=== PATIENT | female | born 1945 | race Caucasian/White ===

== ENCOUNTER → 2021-07-14 15:00 | Outpatient (BNVA) | payer MEDICARE, SELFPAY | PROVIDERS: PCP Family Medicine; Visit Provider Psychiatry & Neurology Neurology | DX: G20 Parkinson's disease (principal); F03.90 Unspecified dementia, unspecified severity, without behavioral disturbance, psychotic disturbance, mood disturbance, and anxiety; G47.33 Obstructive sleep apnea (adult) (pediatric); Z79.899 Other long term (current) drug therapy; Z99.89 Dependence on other enabling machines and devices | CPT/HCPCS: 99212 ==

== ENCOUNTER → 2021-07-23 14:28 | Outpatient (BNVA) | payer MEDICARE, SELFPAY | PROVIDERS: PCP Family Medicine; Referring Provider Family Medicine; Visit Provider Nurse Practitioner | DX: Z12.11 Encounter for screening for malignant neoplasm of colon (principal); K58.2 Mixed irritable bowel syndrome | CPT/HCPCS: 99202 ==

== ENCOUNTER 2021-09-08 09:04 | Day surgery (SDC) | payer MEDICARE, SELFPAY ==
--- NOTE | 2021-09-07 11:01 | P.CONAN_ITS ---
Documented by User: Nellie Johnson NP 09/07/21 11:02 HPI - Anesthesia Eval Consult details Narrative: 76yo F Colonoscopy PMFSH Active Problems Active Problems: All Active Problems (Updated 07/23/21 @ 16:22 by MIKE Bill) Colon cancer screening (Acute) Irritable bowel syndrome with both constipation and diarrhea (Acute) Diarrhea (Acute) Parkinson's disease (Acute) Dementia (Acute) Vitamin B 12 deficiency (Acute) ALEXANDRA on CPAP (Acute) Arthritis (Acute) Prediabetes (Acute) HTN (hypertension) (Acute) Sarcoidosis (Acute) Past Medical History Medical History Anemia Arthritis Dementia HTN (hypertension) ALEXANDRA on CPAP Parkinson's disease Prediabetes Sarcoidosis Vitamin D deficiency Family History Family History Mother Cancer Hx of heart surgery Diabetes Stroke Father Ankylosing spondylitis of multiple sites in spine Surgical History Surgical History History of esophagogastroduodenoscopy (EGD) Hx of colonoscopy Knee joint replacement status Social History Social History Alcohol intake: never Patient Tobacco Use Status: Never used Tobacco Use of substances other than those prescribed or required for medical reasons: No Are you DNR?: No Advance Directives: No Advance Directives Information Provided: Yes Meds Allergies Allergy/AdvReac Type Severity Reaction Status Date / Time No Known Allergies Allergy Verified 09/02/21 15:07 Home Medications Medication Instructions Recorded Confirmed Last Taken Type escitalopram oxalate 10 mg tablet 10 mg PO DAILY 07/08/21 09/02/21 09/08/21 History memantine 10 mg tablet 10 mg PO BID 07/08/21 09/02/21 09/08/21 History carbidopa 25 mg-levodopa 100 mg 1 tab PO .5 times day 07/14/21 09/02/21 09/08/21 History tablet lisinopril 5 mg tablet 5 mg PO DAILY 07/14/21 09/02/21 Unknown History triamcinolone acetonide 0.1 % 1 appl topical BID 07/14/21 09/02/21 Unknown History topical cream Ca carbonate-vit D3-mag oxide-FA-K cap PO 07/23/21 Unknown History 500 mg-100 unit-45 mg-800 mcg cap Glucofunction PO TID 07/23/21 Unknown History Hericium erinaceus PO BID 07/23/21 Unknown History acetylcysteine 600 mg tablet (NAC) mg PO BID 07/23/21 09/08/21 History ascorbic acid (vitamin C) 1,000 mg 1 g PO DAILY 07/23/21 09/02/21 Unknown History tablet coQ10 (ubiquinol) 200 mg capsule 200 mg PO DAILY 07/23/21 09/02/21 Unknown History cyanocobalamin-methylcobalamin 600 tab sublingual 07/23/21 Unknown History mcg-600 mcg sublingual tablet lactobacillus combination no.9 4 4,000 mmu cells PO DAILY 07/23/21 09/02/21 Unknown History billion cell capsule (Adult 50 Plus Probiotic) levomefolate calcium 15 mg tablet 15 mg PO DAILY 07/23/21 09/02/21 Unknown History (L-Methylfolate) omega 3-tpe-gus-fish oil 300 1 cap PO DAILY 07/23/21 09/02/21 Unknown History mg-1,000 mg capsule (Fish Oil) vitamin B complex 1 tab PO DAILY 07/23/21 09/02/21 Unknown History Exam Exam Date and Time: September 07, 2021 1101 Assessment and Plan Assessment Anesthesia Assessment: Chart Reviewed Documented by User: Juancho Oconnell MD 09/08/21 11:14 HPI - Anesthesia Eval Consult details Narrative: 76yo F Colonoscopy ALEXANDRA on CPAP Parkinson's on Dopa PMFSH Past Medical History Medical History Anemia Arthritis Dementia HTN (hypertension) ALEXANDRA on CPAP Parkinson's disease Prediabetes Sarcoidosis Vitamin D deficiency Family History Family History Mother Cancer Hx of heart surgery Diabetes Stroke Father Ankylosing spondylitis of multiple sites in spine Family history of problems with anesthesia: No Surgical History Surgical History History of esophagogastroduodenoscopy (EGD) Hx of colonoscopy Knee joint replacement status History of Problems with Anesthesia: No Social History Social History Alcohol intake: never Patient Tobacco Use Status: Never used Tobacco Use of substances other than those prescribed or required for medical reasons: No Are you DNR?: No Advance Directives: No Advance Directives Information Provided: Yes Meds Allergies Allergy/AdvReac Type Severity Reaction Status Date / Time No Known Allergies Allergy Verified 09/02/21 15:07 Home Medications Medication Instructions Recorded Confirmed Last Taken Type escitalopram oxalate 10 mg tablet 10 mg PO DAILY 07/08/21 09/02/21 09/08/21 History memantine 10 mg tablet 10 mg PO BID 07/08/21 09/02/21 09/08/21 History carbidopa 25 mg-levodopa 100 mg 1 tab PO .5 times day 07/14/21 09/02/21 09/08/21 History tablet lisinopril 5 mg tablet 5 mg PO DAILY 07/14/21 09/02/21 Unknown History triamcinolone acetonide 0.1 % 1 appl topical BID 07/14/21 09/02/21 Unknown History topical cream Ca carbonate-vit D3-mag oxide-FA-K cap PO 07/23/21 Unknown History 500 mg-100 unit-45 mg-800 mcg cap Glucofunction PO TID 07/23/21 Unknown History Hericium erinaceus PO BID 07/23/21 Unknown History acetylcysteine 600 mg tablet (NAC) mg PO BID 07/23/21 09/08/21 History ascorbic acid (vitamin C) 1,000 mg 1 g PO DAILY 07/23/21 09/02/21 Unknown Histor y tablet coQ10 (ubiquinol) 200 mg capsule 200 mg PO DAILY 07/23/21 09/02/21 Unknown History cyanocobalamin-methylcobalamin 600 tab sublingual 07/23/21 Unknown History mcg-600 mcg sublingual tablet lactobacillus combination no.9 4 4,000 mmu cells PO DAILY 07/23/21 09/02/21 Unknown History billion cell capsule (Adult 50 Plus Probiotic) levomefolate calcium 15 mg tablet 15 mg PO DAILY 07/23/21 09/02/21 Unknown History (L-Methylfolate) omega 8-pyv-mpi-fish oil 300 1 cap PO DAILY 07/23/21 09/02/21 Unknown History mg-1,000 mg capsule (Fish Oil) vitamin B complex 1 tab PO DAILY 07/23/21 09/02/21 Unknown History Exam Airway Mallampati Class: II TM Dist: >3cm Neck ROM: Full Loose/Missing/Broken Teeth: Yes Other: Tongue tip irritation since yesterday Assessment and Plan Assessment Anesthesia Assessment: Anesthesia Plan Discussed Final Anesthetic Review Family History of Problems with Anesthesia: No History of Problems with Anesthesia: No NPO: Yes ASA Class: III Final Preanesthetic Review: No Changes in Pt Med Stat, Meds/Allgs Chart Reviewed, Consent Obtained/Reviewed and Anes Risks/Benef Reviewed Patient Risk: Low Procedure Risk: Low Anesthetic Plan Anesthetic Plan: MAC: Disposition: Standard PACU
[2021-09-08 09:36] VITALS: BP 160/79; PULSE 85; RESP 16; TEMP 36.3; O2SAT 97; BMI 33.0
[2021-09-08] MEDS: Lactated Ringers 1,000 ML 100 ML IVCONT (09:57)
--- NOTE | 2021-09-08 10:37 | MHC.SHP ---
Pre-Procedural Eval Section A Date of Service: 09/08/21 The patient is an INPATIENT: No The History & Physical has been completed within 30 days and I have reviewed it.: No Section B Chief Complaint: screening,IBS Details of Present Illness: colon cancer screening, diarrhea and constipation Relevant Family History (Specify if Yes): No Relevant Social History: None Present Medications: see Short Stay Collaborative assessment Medical History: Significant History (Obstructive sleep apnea-CPAP Parkinson's disease Hypertension Depression Prolonged QT interval Cognitive decline) History of Previous Operations: Relevant previous surgery/procedure and date(s) (bilateral knee replacements Tonsillectomy) Allergies: Allergies Allergy/AdvReac Type Severity Reaction Status Date / Time No Known Allergies Allergy Verified 09/02/21 15:07 Review of Systems Sugical H&P ROS: Negative: Constitution, Cardiovascular and Respiratory and Yes, Specify: Gastrointestinal (diarrhea and constipation) Exam Surgical H&P Exam: Normal: Heart, Normal: Lungs, Normal: Extremities and Normal: Abdomen Plan Diagnosis/Plan: Unchanged I have reviewed the history and physical and performed a pertinent physical examination on my patient. No changes have occurred unless specified.
--- NOTE | 2021-09-08 10:43 | PM.OP ---
Brief Operative Note Date of Service: 09/08/21 Pre-op diagnosis: colon cancer screen, history of colon polyps, diarrhea and constipation Post-op diagnosis: other ( colon polyps, diverticulosis) Procedure: COLONOSCOPY TILL CECUM WITH BIOPSIES Consent: Indications for the procedure and potential complications of bleeding, perforation, reaction to medications and missed diagnosis were discussed with the patient and informed consent was obtained. Instrument: Olympus PCF H 190 L variable stiffness pediatric colonoscope Monitoring: Vital signs and clinical assessment, intermittent blood pressure monitoring, continuous EKG monitoring, Pulse oximetry and Carbon Dioxide monitoring were done throughout the procedure. Colon withdrawl time was 22 minutes. Procedure: The patient was placed in the left lateral decubitis position and pre-procedure medications were administered. After a digital rectal examination of the ano-rectum, the video colonoscope was inserted into the rectum and advanced through the colon to the cecum. The colonoscope was slowly withdrawn in a retrograde panoramic fashion and the colon mucosa was carefully examined including a retroflexed view of the rectum. Findings and interventions are described below. Procedure Difficulty: Without difficulty Colon was long and there was some loop formation. Findings: Terminal Ileum: Not evaluated Cecum: Partially evaluated due to adherent stools that could not be flushed. Ascending Colon: Normal Transverse Colon: A few 3-4 mm diminutive polyps - two removed by cold biopxy Descending Colon: Normal Sigmoid Colon: Mild diverticulosis Rectum: Normal Ano-rectum: Nidia-anal skin tags Colon preparation: Good after some irrigation and fair in the right colon Impression and Post Procedure Diagnosis: Colonoscopy Findings: Two diminutive appearing polyps removed Mild diverticulosis seen in the sigmoid colon Plan: Await pathology results Patient has an appointment on 10/06/21 in the [facility] with Brooke Brown NP Pt reported dicyclomine has been helping a little. Repeat Colonoscopy interval based on path results - in 5 years if polyps are adenomatous and due to fair prep in the right colon - needs extra laxatives for next colonoscopy. Above findings were reviewed with the patient and colon polyps handout was given in the discharge area Surgeon: Andrea Masters MD Anesthesia: MAC Was an [employer] Consultant used for this Procedure?: Yes [employer] Consultant: Noemi Kan Estimated blood loss (mL): 0 Pathology: other ( A. transverse colon polyps (2) B. random right colon bxs, R/O microscopic colitis C. random left colon bxs, R/O microscopic colitis) Condition: stable Disposition: PACU
[2021-09-08 11:36] VITALS: BP 91/48; PULSE 61; RESP 16; TEMP 36.1; O2SAT 96
[2021-09-08 11:51] VITALS: BP 123/63; PULSE 72; RESP 16; O2SAT 98
[2021-09-08 12:06] VITALS: BP 142/67; PULSE 71; RESP 16; TEMP 36.1; O2SAT 98
--- NOTE | 2021-09-08 17:02 | W.PM.OPN ---
Operative Note Operative Note Date of Service: 09/08/21 Narrative: Pre-op diagnosis: colon cancer screen, history of colon polyps, diarrhea and constipation Post-op diagnosis:?other ( colon polyps, diverticulosis) Procedure: COLONOSCOPY TILL CECUM WITH BIOPSIES Consent: Indications for the procedure and potential complications of bleeding, perforation, reaction to medications and missed diagnosis were discussed with the patient and informed consent was obtained. Instrument: Olympus PCF H 190 L variable stiffness pediatric colonoscope Monitoring: Vital signs and clinical assessment, intermittent blood pressure monitoring, continuous EKG monitoring, Pulse oximetry and Carbon Dioxide monitoring were done throughout the procedure. Colon withdrawl time was 22 minutes. Procedure: The patient was placed in the left lateral decubitis position and pre-procedure medications were administered. After a digital rectal examination of the ano-rectum, the video colonoscope was inserted into the rectum and advanced through the colon to the cecum. The colonoscope was slowly withdrawn in a retrograde panoramic fashion and the colon mucosa was carefully examined including a retroflexed view of the rectum. Findings and interventions are described below. Procedure Difficulty: Without difficulty Colon was long and there was some loop formation. Findings: Terminal Ileum: Not evaluated Cecum:? Partially evaluated due to adherent stools that could not be flushed. Ascending Colon:? Normal Transverse Colon:? A few 3-4 mm diminutive polyps - two removed by cold biopxy Descending Colon:? Normal Sigmoid Colon:? Mild diverticulosis Rectum:? Normal Ano-rectum: Nidia-anal skin tags Colon preparation:? Good after some irrigation and fair in the right colon Impression and Post Procedure Diagnosis: Colonoscopy Findings: Two diminutive appearing polyps removed Mild diverticulosis seen in the sigmoid colon Plan: Await pathology results Patient has an appointment on 10/06/21 in the GI Clinic with? Brooke Brown NP Pt reported dicyclomine has been helping a little. Repeat Colonoscopy interval based on path results - in 5 years if polyps are adenomatous and due to fair prep in the right colon - needs extra laxatives for next colonoscopy. Above findings were reviewed with the patient and colon polyps handout was given in the discharge area Surgeon: Andrea Masters MD Anesthesia:?MAC Was an [employer]ors used for this Procedure?:?Yes [employer]:?Noemi Kan Estimated blood loss (mL):?0 Pathology:?other ( A. transverse colon polyps (2)? B. random right colon bxs, R/O microscopic colitis? C. random left colon bxs, R/O microscopic colitis) Condition:?stable Disposition:?PACU
== END 2021-09-08 13:20 | disposition home or self-care (01) ==
PROVIDERS: PCP Family Medicine; Visit Provider Internal Medicine Gastroenterology
PROC: 0DJD8ZZ Inspection of Lower Intestinal Tract, Via Natural or Artificial Opening Endoscopic (ICD-10-PCS; CPT 45378; principal; 2021-09-08 10:50)
DX: Z12.11 Encounter for screening for malignant neoplasm of colon (principal); Z86.010 Personal history of colon polyps; K63.5 Polyp of colon; K57.30 Diverticulosis of large intestine without perforation or abscess without bleeding; K64.4 Residual hemorrhoidal skin tags; K58.2 Mixed irritable bowel syndrome; D64.9 Anemia, unspecified; G47.33 Obstructive sleep apnea (adult) (pediatric); G20 Parkinson's disease; I10 Essential (primary) hypertension; D86.9 Sarcoidosis, unspecified; R73.03 Prediabetes; E55.9 Vitamin D deficiency, unspecified; F03.90 Unspecified dementia, unspecified severity, without behavioral disturbance, psychotic disturbance, mood disturbance, and anxiety; Z79.899 Other long term (current) drug therapy; Z96.653 Presence of artificial knee joint, bilateral
CPT/HCPCS: 45380; 88305

== ENCOUNTER → 2021-10-01 15:30 | Outpatient (BNVA) | payer MEDICARE, SELFPAY | PROVIDERS: Visit Provider Psychiatry & Neurology Neurology | DX: G20 Parkinson's disease (principal); F02.80 Dementia in other diseases classified elsewhere, unspecified severity, without behavioral disturbance, psychotic disturbance, mood disturbance, and anxiety; G47.33 Obstructive sleep apnea (adult) (pediatric); Z99.89 Dependence on other enabling machines and devices | CPT/HCPCS: Q3014 ==

== ENCOUNTER → 2021-10-02 12:00 | Outpatient (BNVA) | payer MEDICARE, SELFPAY | PROVIDERS: Visit Provider Psychiatry & Neurology Neurology | DX: G20 Parkinson's disease (principal); F03.90 Unspecified dementia, unspecified severity, without behavioral disturbance, psychotic disturbance, mood disturbance, and anxiety; G47.33 Obstructive sleep apnea (adult) (pediatric); Z99.89 Dependence on other enabling machines and devices | CPT/HCPCS: 99212 ==

== ENCOUNTER 2021-10-06 16:18 | Outpatient (REF) | payer MEDICARE, SELFPAY ==
[2021-10-06 17:45] LABS: Alanine Aminotransferase 6 U/L (0-31); Albumin Level 4.4 g/dL (3.5-5.0); Alkaline Phosphatase 106 U/L (39-117); Anion Gap 15 (12-20); Aspartate Amino Transferase 16 U/L (5-31); Bilirubin Total 0.4 mg/dL (0.0-1.0); Blood Urea Nitrogen 31 mg/dL (9-16); Calcium 9.8 mg/dL (8.4-10.2); Carbon Dioxide 28 mmol/L (22-29); Chloride 103 mmol/L (96-108); Estimated Glomerular Filt Rate 35; Glucose Random 110 mg/dL (60-115); Sodium 141 mmol/L (135-145); Total Protein 7.5 g/dL (6.5-8.0)
[2021-10-06 18:05] LABS: TSH reflex Free T4 1.22 uIU/mL (0.32-4.0)
== END 2021-10-06 16:19 | disposition home or self-care (01) ==
LOC: HO.LAB 16:18
PROVIDERS: PCP Family Medicine; Visit Provider Nurse Practitioner
DX: K58.2 Mixed irritable bowel syndrome (principal); R19.7 Diarrhea, unspecified
CPT/HCPCS: 36415; 80053; 84443; 86003; 99212

== ENCOUNTER → 2021-11-17 15:48 | Outpatient (BNVA) | payer MEDICARE, SELFPAY | PROVIDERS: PCP Family Medicine; Visit Provider Nurse Practitioner | DX: K58.2 Mixed irritable bowel syndrome (principal) | CPT/HCPCS: 99212 ==

== ENCOUNTER → 2022-03-18 14:31 | Outpatient (BNVA) | payer MEDICARE, SELFPAY | PROVIDERS: PCP Family Medicine; Visit Provider Psychiatry & Neurology Neurology | DX: G20 Parkinson's disease (principal); F03.90 Unspecified dementia, unspecified severity, without behavioral disturbance, psychotic disturbance, mood disturbance, and anxiety; R73.03 Prediabetes; G47.33 Obstructive sleep apnea (adult) (pediatric); Z99.89 Dependence on other enabling machines and devices | CPT/HCPCS: 99212 ==